=== PATIENT | female | born 1945 | race Caucasian/White ===

== ENCOUNTER 2021-10-31 20:54 | Emergency (ER) | payer OTHER ==
[~2021-10-31] VITALS: Ht 149.9 cm; Wt 95.3 kg
[2021-10-31] MEDS ORDERED: ACETAMINOPHEN-1 EAC4 PO (23:07)
== END 2021-10-31 23:20 | disposition home or self-care (01) ==
LOC: ER 20:58
DX: S00.83XA Contusion of other part of head, initial encounter (principal); S60.222A Contusion of left hand, initial encounter; R07.89 Other chest pain; R51.9 Headache, unspecified; W01.198A Fall on same level from slipping, tripping and stumbling with subsequent striking against other object, initial encounter; Y93.01 Activity, walking, marching and hiking; Y92.89 Other specified places as the place of occurrence of the external cause; I10 Essential (primary) hypertension; E11.9 Type 2 diabetes mellitus without complications; E78.5 Hyperlipidemia, unspecified
CPT/HCPCS: 70450; 71250; 99283